=== PATIENT | female | born 1975 | race Caucasian/White ===

== ENCOUNTER 2019-10-31 09:49 | Outpatient (CLI) | payer OTHER, SELFPAY ==
--- NOTE | 2019-10-31 10:03 | XR_ITS ---
WS: [id number] EXAM: XR lumbar spine 2-3V* [id number] DATE OF EXAMINATION: 10/31/2019, 1012 hours COMPARISON: None. HISTORY: 43 years old with low back pain for years FINDINGS: Lower thoracic and lumbar vertebrae are of normal height. No extensive degenerative spondylosis beavers es are seen in the lower thoracic or upper lumbar spine region. Slight degenerative spondylosis beavers es L2-3, L3-4 and L4-5 level. Slight posterior facet arthropathy changes mid and lower lumbar spine. No fracture, lytic or blastic process. No pars fracture noted. All pedicles are appreciated on the AP radiograph. No paraspinal soft tissue abnormality is seen. XR/XR lumbar spine 2-3V* [id number] IMPRESSION: SCATTERED CHANGES OF OSTEOARTHRITIS. NO ACUTE BONY ABNORMALITY.
== END 2019-10-31 09:50 | disposition home or self-care (01) ==
PROVIDERS: Visit Provider Family Medicine Adolescent Medicine
DX: M54.5 Low back pain (principal)
CPT/HCPCS: 72100